=== PATIENT | male | born 2005 ===

== ENCOUNTER → 2025-02-10 | Outpatient (REF) | payer OTHER | LOC: M SFHCWAGY 12:56 | PROVIDERS: ATTEND Student in an Organized Health Care Education/Training Program | DX: Z31.41 Encounter for fertility testing (principal) ==

== ENCOUNTER → 2025-02-17 | Outpatient (REF) | payer OTHER ==
[2025-02-17 09:40] LABS: SEMEN APPEARANCE OPAQUE (OPAQUE); SEMEN VISCOSITY LIQUID (LIQUID); SEMEN VOLUME 2.5 ml (2.0-5.0); SPERM CONCENTRATION 36.9 M/ml (>=15.0); WBC CONCENTRATION <=1 M/ml (<=1 M/ml)
[2025-02-17 09:41] LABS: TOTAL PROGRESSIVE SPERM 31.7 M/Ejac.
== END ==
LOC: M LAB REF 09:34
PROVIDERS: ATTEND Student in an Organized Health Care Education/Training Program
DX: Z31.41 Encounter for fertility testing (principal)